=== PATIENT | male | born 1945 | race Caucasian/White ===

== ENCOUNTER 2021-02-05 16:41 | Inpatient (IN) | payer MEDICARE ==
[~2021-02-05] VITALS: Ht 175.3 cm; Wt 106.6 kg
[2021-02-05 17:41] LABS: BASOPHILS ABSOLUTE AUTO 0.04 K/mm3 (0.00-0.23); BASOPHILS PERCENT AUTO 0 % (0-2); EOSINOPHILS ABSOLUTE AUTO 0.01 K/mm3 (0.00-0.68); EOSINOPHILS PERCENT AUTO 0 % (0-6); Hematocrit 35.4 % (37.0-53.0); Hemoglobin 10.8 g/dL (13.5-17.5); IMMATURE GRAN ABSOLUTE AUTO 0.12 K/mm3 (0.00-0.10); IMMATURE GRAN PERCENT AUTO 1 % (0-1); LYMPHOCYTES ABSOLUTE AUTO 1.88 K/mm3 (0.84-5.20); LYMPHOCYTES PERCENT AUTO 14 % (21-46); MONOCYTES ABSOLUTE AUTO 1.33 K/mm3 (0.16-1.47); MONOCYTES PERCENT AUTO 10 % (4-13); Mean Corpuscular HGB Conc 30.5 g/dL (31.5-36.5); Mean Corpuscular Volume 85 fL (80-100); Mean Platelet Volume 9.6 fL (9.1-12.4); NEUTROPHILS ABSOLUTE AUTO 10.44 K/mm3 (1.96-9.15); NEUTROPHILS PERCENT AUTO 76 % (41-73); Platelet Count 403 K/mm3 (150-400); RDW Coefficient Variation 14.4 % (11.7-14.2); RDW Standard Deviation 44.6 fL (35.1-46.3); Red Blood Cell Count 4.16 M/mm3 (4.30-5.90); White Blood Cell Count 13.82 K/mm3 (4.00-11.30)
[2021-02-05 18:04] LABS: Magnesium, Blood 3.3 mg/dL (1.6-2.4)
[2021-02-05 18:15] LABS: Albumin/Globulin Ratio 0.5 (0.8-1.8); Bilirubin, Total 0.8 mg/dL (0.1-1.0); Bun/Creatinine Ratio 22.6 (12.0-20.0); Calcium, Blood 8.8 mg/dL (8.5-10.1); Creatinine, Blood 1.37 mg/dL (0.60-1.20); Globulin, Blood 6.3 g/dL (2.2-4.0); Potassium, Blood 9.5 mmol/L (3.5-5.5); Total Protein, Blood 9.3 g/dL (6.4-8.2)
[2021-02-05] MEDS ORDERED: FURO80 PO (18:32)
[2021-02-05] MEDS ORDERED: POTCHL20ER PO (18:32)
[2021-02-05] MEDS ORDERED: METO25 PO (18:36)
[2021-02-05] MEDS ORDERED: METO2.5 PO (18:36)
[2021-02-05] MEDS ORDERED: AMIL5 PO (18:37)
[2021-02-05 18:54] LABS: Source, Urine Voided
[2021-02-05 18:58] LABS: Bilirubin, Urine Neg (Neg); Blood, Urine Neg (Neg); Glucose Qualitative, Urine Neg (Neg); Ketones, Urine Neg (Neg); Leukocyte Esterase, Urine 1+ (Neg); Nitrite, Urine Neg (Neg); Protein, Urine 2+ (Neg); Urobilinogen, Urine NORM (Normal)
[2021-02-05 19:11] LABS: Appearance, Urine Clear (Clear); Color, Urine Yellow (P-Yellow)
[2021-02-05 19:13] LABS: White Blood Cells, Urine Rare /hpf (0-5)
[2021-02-05 19:15] LABS: Bacteria Not Seen /hpf; Red Blood Cells, Urine Rare /hpf (0-2); Squamous Epithelial Cells Not Seen /hpf (Few)
[2021-02-05 19:20] LABS: Calcium, Ionized (POC) 1.23 mmol/L (1.10-1.46); Chloride (POC) 114 mmol/L (98-108); Creatinine (POC) 1.5 mg/dL (0.8-1.3); Glucose (ISTAT POC) 216 mg/dL (70-99); Hemoglobin (POC) 9.5 g/dL (13.5-17.5); Potassium (POC) 8.5 mmol/L (3.5-5.5); Sodium (POC) 138 mmol/L (135-148); Total CO2 (POC) 22 mmol/L (21-32)
[2021-02-05 20:25] LABS: Bun/Creatinine Ratio 23.6 (12.0-20.0); Calcium, Blood 8.1 mg/dL (8.5-10.1); Creatinine, Blood 1.27 mg/dL (0.60-1.20); Potassium, Blood 7.8 mmol/L (3.5-5.5)
--- NOTE | 2021-02-05 20:47 | NUR ---
PATIENT ARRIVED TO ICU VIA GURNEY FROM ED. PATIENT TRANSFER TO ICU BED WITH SLIDER SHEET AND PLACED ON ICU MONITORS. PATIENT VERBALIZED THAT HE IS FEELING BETTER ALREADY. ANSWERING QUESTIONS APPROPRIATELY AND FOLLOWING DIRECTIONS. NO LONGER FEELING NAUSEA AND ASKING FOR SOMETHING TO EAT. SNACK OF 1/2 SANDWICH, YOGURT AND CLEAR LIQUID ENSURE GIVEN, PATIENT EATING 100% WITHOUT DIFFICULTY. WHEN AWAKE PATIENT HAS UPPER BODY TREMOR, PATIENT VERBALIZED THIS IS NOT NEW FOR HIM. AFTER EATING PATIENT FALLING TO SLEEP WHEN NOT DISTURBED, AWAKENS EASILY TO VERBAL STIMULI, PLAN TO ASK ADMIT QUESTIONS WHEN PATIENT MORE AWAKE. WHILE SLEEPING NO TREMOR SEEN. BALLESTEROS DRAINING LARGE AMT OF CLEAR YELLOW URINE
[2021-02-05 21:34] LABS: Bun/Creatinine Ratio 23.3 (12.0-20.0); Calcium, Blood 8.5 mg/dL (8.5-10.1); Creatinine, Blood 1.29 mg/dL (0.60-1.20); Potassium, Blood 6.8 mmol/L (3.5-5.5)
--- NOTE | 2021-02-05 21:40 | NUR ---
DOCTOR GLEN NOTIFIED OF K+ LEVEL SEE NEW ORDERS
--- NOTE | 2021-02-05 22:00 | NUR ---
PICTURES TAKEN OF BLISTER AND WOUND TO RIGHT RICHARD, AND DISCOLORATION TO BOTH LEGS FROM KNEE TO ANKLE.
--- NOTE | 2021-02-05 23:45 | NUR ---
DOCTOR GLEN NOTIFIED OF CONTINUED DECREASING OF POTASSIUM LEVEL, PATIENT HAVING GREAT URINE OUTPUT. LIONEL PO WITHOUT DIFFICULTY. PATIENT SLEEPING WITH 2L/NC IN PLACE WHEN UNDISTURBED. PLAN TO REPEAT LABS IN AM.
[2021-02-06 03:27] LABS: BASOPHILS ABSOLUTE AUTO 0.02 K/mm3 (0.00-0.23); BASOPHILS PERCENT AUTO 0 % (0-2); EOSINOPHILS ABSOLUTE AUTO 0.05 K/mm3 (0.00-0.68); EOSINOPHILS PERCENT AUTO 1 % (0-6); Hematocrit 25.6 % (37.0-53.0); Hemoglobin 7.9 g/dL (13.5-17.5); IMMATURE GRAN ABSOLUTE AUTO 0.03 K/mm3 (0.00-0.10); IMMATURE GRAN PERCENT AUTO 0 % (0-1); LYMPHOCYTES ABSOLUTE AUTO 1.99 K/mm3 (0.84-5.20); LYMPHOCYTES PERCENT AUTO 24 % (21-46); MONOCYTES ABSOLUTE AUTO 1.11 K/mm3 (0.16-1.47); MONOCYTES PERCENT AUTO 14 % (4-13); Mean Corpuscular HGB 25.8 pg (26.0-34.0); Mean Corpuscular HGB Conc 30.9 g/dL (31.5-36.5); Mean Corpuscular Volume 84 fL (80-100); Mean Platelet Volume 9.6 fL (9.1-12.4); NEUTROPHILS ABSOLUTE AUTO 4.97 K/mm3 (1.96-9.15); NEUTROPHILS PERCENT AUTO 61 % (41-73); Platelet Count 282 K/mm3 (150-400); RDW Coefficient Variation 14.4 % (11.7-14.2); RDW Standard Deviation 44.1 fL (35.1-46.3); Red Blood Cell Count 3.06 M/mm3 (4.30-5.90); White Blood Cell Count 8.17 K/mm3 (4.00-11.30)
[2021-02-06 03:42] LABS: Albumin, Blood 2.2 g/dL (3.4-5.0); Anion Gap 6 mmol/L (6-16); Blood Urea Nitrogen 31 mg/dL (8-24); Bun/Creatinine Ratio 23.5 (12.0-20.0); CO2, Blood 27 mmol/L (21-32); Calcium, Blood 7.8 mg/dL (8.5-10.1); Chloride, Blood 109 mmol/L (98-108); Creatinine, Blood 1.32 mg/dL (0.60-1.20); Glomerular Filtration Rate 56 (60-); Glucose, Blood 167 mg/dL (70-99); Magnesium, Blood 2.5 mg/dL (1.6-2.4); Phosphorus, Blood 5.1 mg/dL (2.5-4.9); Potassium, Blood 3.3 mmol/L (3.5-5.5); Sodium, Blood 142 mmol/L (136-145)
--- NOTE | 2021-02-06 06:36 | NUR ---
SUMMARY DOCTOR GLEN FOLLOWING PATIENTS LABS CLOSELY T/O NIGHT. THIS AM POTASSIUM LEVEL NOW LOW, REPLACED BY DOCTOR CARROLL. PATIENT SLEEPING OFF AND ON T/O NIGHT, AWAKING EASILY TO VERBAL STIMULI. PATIENT VERBALIZED FEELING BETTER THIS AM. NO BM SINCE ADMIT. BALLESTEROS DRAINING LARGE AMT OF CLEAR YELLOW URINE. CONTINUES TO HAVE TREMORS WHEN AWAKE. PATIENT REPOSITIONING SELF IN BED FOR COMFORT.
--- NOTE | 2021-02-06 07:02 | NUR ---
DOCTOR GLEN IN TO SEE PATIENT, BICARB DRIP OFF.
--- NOTE | 2021-02-06 09:44 | NUR ---
Patient awake and being set up for breakfast. He tolerates feeding himself. He took am meds with coffee. Continues to reposition self for comfort. he remains hypotensive with good MAPS >65. VSS, See EMR. Dr Pino r by and wrote new orders and ECHO by and will return after he done eating.
--- NOTE | 2021-02-06 11:37 | NUR ---
Echocardiogram using 0.75ml of Definity contrastr performed.
--- NOTE | 2021-02-06 12:36 | NUR ---
Patient is sitting up eating lunch and mostly sleeps between meals. He is med with tele. VSS, See EMR. Positions himself for comfort. Assist with sitting up for meals. Remains on 2L O2 via NC and stats >90%. Paient remains alert and oriented and communicable with his needs.
--- NOTE | 2021-02-06 16:26 | NUR ---
Pt transferred to medical floor via bed with RN. All belongings transferred with pt. Report given to medical floor nurse by BHAVYA Hollis.
--- NOTE | 2021-02-06 16:34 | NUR ---
ASSUMED CARE OF PATIENT UPON HIS ARRIVAL FROM ICU AT 1419. TRANSFERRED TO MEDICAL BED WITHOUT INCIDENT. AWAITING SOFTWARE TEST AUTOMATION ENGINEER BOX. BALLESTEROS WITH ~ 200 ML IN BAG, CLEAR YELLOW. DENIED PAIN "OTHER THAN MY USUAL." SKIN INTACT EXCEPT FOR LARGE SEROUS FILLED BLISTER ON R CALF. SKIN PEELING AND VERY DRY ON BLE, NO PERIPHERAL EDEMA, PULSES FAINT BILATERALLY. HOB ELEVATED TO > 30 DEGREES PER PT COMFORT. CALL LIGHT AND BELONGINGS IN REACH.
--- NOTE | 2021-02-06 17:49 | NUR ---
SHIFT SUMMARY: NO EVENTS SINCE HIS ARRIVAL. TELEMETRY SHOWS SR WITH PAC'S WITH RATE OF 90. BALLESTEROS DRAINING ADEQUATE YELLOW URINE. WEARING O2 @ 2 L/MIN NC WITH O2 SAT 91-95% DEPENDING ON ACTIVITY. HAS SLIGHT TREMORS, GENERALIZED.
--- NOTE | 2021-02-06 18:27 | NUR ---
Mr. Crowell reports a strong antonietta and great connection with denominational, friends, and neighbors. He tells me he lost his a few years ago, and is looking forward to being with her again. He is not afraid of , but is hoping for more quality time with his first great-grandchild. He told me his life review and explained his antonietta journey. He responded well to prayer and spiritual encouragement. No concerns/fears presented. He appears to be accepting his aging process with dwain/antonietta. I will remain available.
[2021-02-07 05:58] LABS: BASOPHILS ABSOLUTE AUTO 0.03 K/mm3 (0.00-0.23); BASOPHILS PERCENT AUTO 0 % (0-2); EOSINOPHILS PERCENT AUTO 3 % (0-6); Hematocrit 25.5 % (37.0-53.0); IMMATURE GRAN ABSOLUTE AUTO 0.02 K/mm3 (0.00-0.10); IMMATURE GRAN PERCENT AUTO 0 % (0-1); LYMPHOCYTES ABSOLUTE AUTO 2.51 K/mm3 (0.84-5.20); LYMPHOCYTES PERCENT AUTO 32 % (21-46); MONOCYTES ABSOLUTE AUTO 1.02 K/mm3 (0.16-1.47); MONOCYTES PERCENT AUTO 13 % (4-13); Mean Corpuscular HGB 25.9 pg (26.0-34.0); Mean Corpuscular HGB Conc 31.4 g/dL (31.5-36.5); Mean Corpuscular Volume 83 fL (80-100); Mean Platelet Volume 9.9 fL (9.1-12.4); NEUTROPHILS PERCENT AUTO 52 % (41-73); Platelet Count 297 K/mm3 (150-400); RDW Standard Deviation 41.7 fL (35.1-46.3); Red Blood Cell Count 3.09 M/mm3 (4.30-5.90); White Blood Cell Count 7.88 K/mm3 (4.00-11.30)
--- NOTE | 2021-02-07 06:04 | NUR ---
SHIFT SUMMARY AOX4. SLOW TO RESPOND. VSS. TELE NSR c PAC @78. DENIES PAIN, N/V. REPORTS OCCASIONAL DYSPNEA. SPO2 >90% ON 2L NC. E/U RESPIRATIONS. LUNGS DIM IN BASES. TREMORS TO BUE. BALLESTEROS PATENT & DRAINING CLEAR YELLOW URINE. BLE +3 PITTING EDEMA. CALL LIGHT IN REACH & PT ABLE TO MAKE NEEDS KNOWN.
[2021-02-07 06:39] LABS: Anion Gap 6 mmol/L (6-16); Blood Urea Nitrogen 30 mg/dL (8-24); Bun/Creatinine Ratio 23.6 (12.0-20.0); CO2, Blood 28 mmol/L (21-32); Calcium, Blood 7.5 mg/dL (8.5-10.1); Chloride, Blood 101 mmol/L (98-108); Creatinine, Blood 1.27 mg/dL (0.60-1.20); Free Thyroxine 0.96 ng/dL (0.70-1.60); Glomerular Filtration Rate 58 (60-); Glucose, Blood 153 mg/dL (70-99); Magnesium, Blood 2.3 mg/dL (1.6-2.4); Phosphorus, Blood 3.5 mg/dL (2.5-4.9); Potassium, Blood 2.9 mmol/L (3.5-5.5); Sodium, Blood 135 mmol/L (136-145)
[2021-02-07 07:36] LABS: Percent Saturation 5.2 % (20.0-50.0)
--- NOTE | 2021-02-07 15:23 | NUR ---
PT IS A/OX3, PLEASANT AND COOPERATIVE, THE PT IS UP WITH MODERATE 2 PERSON ASSIST STAND AND PIVOT TO THE CHAIR AND BSC, PT APPEARS TO BE BREATHING EASILY ON RA AT THIS TIME, THE PT DENIES ANY PAIN AT THIS TIME, THE PT WORKED WITH THE OCCUPATIONAL THERAPIST TODAY, HOWEVER, DECLINED TO WORK WITH THE PHYSICAL THERAPIST, CALL LIGHT IN REACH, WILL CONTINUE TO MONITOR AND ASSESS FOR CHANGES
--- NOTE | 2021-02-08 04:33 | NUR ---
SHIFT SUMMARY ASSUMED CARE OF PT AT 1900. PT IS A/OX4. HEART SOUDNS REGULAR, LUNG SOUNDS HAVE CRACKLES IN THE L LUNG. ABD DISTENDED BUT PT STATES NORAML. PT HAS BALLESTEROS, DRAINING WITH GRAVITY. PT LEGS ARE EDEMADOUS, DHEERAJ HOSE ON T/O THE NIGHT. BLISTER ON R RICHARD COVERED WITH MEPILEX. NO NEW COMPLAINTS DURING THE NIGHT. PT WAS AWAKE MOST OF THE NIGHT. CALL LIGHT IN REACH, BED IN LOWEST POSITION.
[2021-02-08 04:42] LABS: BASOPHILS ABSOLUTE AUTO 0.02 K/mm3 (0.00-0.23); BASOPHILS PERCENT AUTO 0 % (0-2); EOSINOPHILS ABSOLUTE AUTO 0.25 K/mm3 (0.00-0.68); EOSINOPHILS PERCENT AUTO 3 % (0-6); Hematocrit 25.3 % (37.0-53.0); Hemoglobin 7.9 g/dL (13.5-17.5); IMMATURE GRAN ABSOLUTE AUTO 0.04 K/mm3 (0.00-0.10); IMMATURE GRAN PERCENT AUTO 1 % (0-1); LYMPHOCYTES ABSOLUTE AUTO 1.78 K/mm3 (0.84-5.20); LYMPHOCYTES PERCENT AUTO 23 % (21-46); MONOCYTES ABSOLUTE AUTO 0.91 K/mm3 (0.16-1.47); MONOCYTES PERCENT AUTO 12 % (4-13); Mean Corpuscular HGB Conc 31.2 g/dL (31.5-36.5); Mean Corpuscular Volume 83 fL (80-100); Mean Platelet Volume 9.6 fL (9.1-12.4); NEUTROPHILS PERCENT AUTO 61 % (41-73); Platelet Count 292 K/mm3 (150-400); RDW Coefficient Variation 13.8 % (11.7-14.2); RDW Standard Deviation 42.1 fL (35.1-46.3); Red Blood Cell Count 3.04 M/mm3 (4.30-5.90)
[2021-02-08 05:06] LABS: Alanine Aminotransfer (ALT/SGP 47 U/L (12-78); Albumin, Blood 1.9 g/dL (3.4-5.0); Albumin/Globulin Ratio 0.4 (0.8-1.8); Alk Phos 115 U/L (50-136); Anion Gap 6 mmol/L (6-16); Aspartate Aminotrans (AST/SGOT 20 U/L (12-37); Bilirubin, Total 0.4 mg/dL (0.1-1.0); Blood Urea Nitrogen 27 mg/dL (8-24); Bun/Creatinine Ratio 22.9 (12.0-20.0); CO2, Blood 29 mmol/L (21-32); Calcium, Blood 7.5 mg/dL (8.5-10.1); Chloride, Blood 99 mmol/L (98-108); Creatinine, Blood 1.18 mg/dL (0.60-1.20); Globulin, Blood 4.8 g/dL (2.2-4.0); Glomerular Filtration Rate >60 (60-); Glucose, Blood 213 mg/dL (70-99); Magnesium, Blood 2.3 mg/dL (1.6-2.4); Phosphorus, Blood 2.5 mg/dL (2.5-4.9); Potassium, Blood 2.9 mmol/L (3.5-5.5); Sodium, Blood 134 mmol/L (136-145); Total Protein, Blood 6.7 g/dL (6.4-8.2)
--- NOTE | 2021-02-08 17:45 | NUR ---
SHIFT SUMMARY PT A&OX3, ABLE TO MAKE NEEDS KNOWN. PLEASANT AND COOPERATIVE TO CARE. NO C/O PAIN OR ANY DISCOMFORT THIS SHIFT. PT CALM AND RESTED IN BED T/O SHIFT. PT WORKED WITH THERAPY TODAY. 2P ASSIST WITH A WALKER. NO C/O CP, SOB, OR N&V. BED AT LOWEST POSITION. CALL LIGHT WITHIN REACH.
--- NOTE | 2021-02-09 04:38 | NUR ---
SHIFT SUMMARY ASSUMED CARE OF PT AT 1900. PT IS A/OX4. HEART SOUNDS REGULAR, LUNG SOUNDS HAVE CRACKLES AT THE BASES. PT WAS PUT ON OXYGEN AROUND 0400 BY RT, RT SAID THAT HE GOT THE O2 READING AT 88, BUT COULD BE INACCURATE DUE TO PT POSITION AND/OR THE PTS FINGERD BEING COLD. PT HAS CATHETER DRAINING WITH GRAVITY. PT LEGS ARE EDEMADOUS. BLISTER ON RICHARD COVERED WITH BANDAGE. PT HAS NO NEW COMPLAINTS AND IS HOPEFUL TO GO HOME IN AM. CALL LIGHT IN REACH, BED IN LOWEST POSTION.
[2021-02-09 04:52] LABS: Hematocrit 24.6 % (37.0-53.0); Hemoglobin 7.8 g/dL (13.5-17.5)
[2021-02-09 05:11] LABS: Albumin, Blood 1.9 g/dL (3.4-5.0); Anion Gap 6 mmol/L (6-16); Blood Urea Nitrogen 24 mg/dL (8-24); CO2, Blood 29 mmol/L (21-32); Calcium, Blood 7.6 mg/dL (8.5-10.1); Chloride, Blood 100 mmol/L (98-108); Creatinine, Blood 1.09 mg/dL (0.60-1.20); Glomerular Filtration Rate >60 (60-); Glucose, Blood 194 mg/dL (70-99); Magnesium, Blood 2.1 mg/dL (1.6-2.4); Sodium, Blood 135 mmol/L (136-145)
[2021-02-09] MEDS ORDERED: CRANBERRY500 M1 PO (14:32)
[2021-02-09] MEDS ORDERED: BUME1 PO (14:32)
[2021-02-09] MEDS ORDERED: SENN187 PO (14:33)
[2021-02-09] MEDS ORDERED: EPLE25 PO (14:33)
[2021-02-09] MEDS ORDERED: FERSU300 PO (14:33)
--- NOTE | 2021-02-09 16:08 | NUR ---
PROFESSOR OF SPANISH REVIEW I HAVE REVIEWED THE PROFESSOR OF SPANISH'S DOCUMENTATION ON THIS PATIENT, PERFOMRED MY OWN ASSESSMENT AND AGREE WITH THE STUDENT'S FINDINGS.
--- NOTE | 2021-02-09 16:36 | NUR ---
Discharge bianca, Patient was A/OX4 this shift, Patient a 1 person assist to transfer, Patient discharged on home health, patient was provided with discharge medication information packet and he stated "no questions." IVs removed prior to discharge. Ingram cath removed prior to discharge nd patient voided using urinal. Patient to vehical via wheelchair and 1 person assist into Personnal vehical.
== END 2021-02-09 15:11 | disposition home health service (06) | DRG 641 ==
LOC: ER 16:41 → ICUW 19:38 → MEDS 02-06 16:10
PROVIDERS: Emergency Medicine; Internal Medicine; Internal Medicine Nephrology; ADMIT Family Medicine
DX: E87.5 Hyperkalemia (principal); N17.9 Acute kidney failure, unspecified; N25.81 Secondary hyperparathyroidism of renal origin; I44.2 Atrioventricular block, complete; I12.9 Hypertensive chronic kidney disease with stage 1 through stage 4 chronic kidney disease, or unspecified chronic kidney disease; D63.1 Anemia in chronic kidney disease; E11.22 Type 2 diabetes mellitus with diabetic chronic kidney disease; N18.30 Chronic kidney disease, stage 3 unspecified; D47.3 Essential (hemorrhagic) thrombocythemia; D72.829 Elevated white blood cell count, unspecified; R19.7 Diarrhea, unspecified; E87.70 Fluid overload, unspecified; I87.8 Other specified disorders of veins; E87.1 Hypo-osmolality and hyponatremia; D50.9 Iron deficiency anemia, unspecified; E87.2 Acidosis; E86.0 Dehydration; E83.39 Other disorders of phosphorus metabolism; E86.9 Volume depletion, unspecified; E87.6 Hypokalemia; E88.09 Other disorders of plasma-protein metabolism, not elsewhere classified; Z88.5 Allergy status to narcotic agent; Z79.899 Other long term (current) drug therapy; Z99.3 Dependence on wheelchair; Z98.890 Other specified postprocedural states; Z79.4 Long term (current) use of insulin
CPT/HCPCS: 36415; 51702; 71045; 76770; 80047; 80048; 80053; 80069; 81001; 82728; 82947; 83540; 83550; 83735; 84100; 84132; 84439; 84443; 85014; 85018; 85025; 93005; 93010; 93970; 94640; 94644; 94760; 94762; 96361-59; 96374-59; 96375-59; 96376-59; 97162; 97166; 97530; 97535; 99285-25; A9270; A9270-GY; C8929; G0008; J0610; J1644; J1815; J2916; J3480; J7030; J7050; J7060; J7070; Q2038; Q9957